=== PATIENT | female | born 1990 | race Caucasian/White ===

== ENCOUNTER → 2017-09-27 | Outpatient (CLI) | payer BC, OTHER ==
--- NOTE | 2017-09-27 09:26 | REP ---
MRI RIGHT HIP: TECHNIQUE: Coronal T1, STIR through the pelvis, T2 fat sat, right hip all three planes, axial oblique proton density fat sat right hip. The visualized osseous structures demonstrate normal marrow signal. There is no bone marrow edema or occult fracture. There is no evidence of avascular necrosis. There does appear to be a tear of the superior labrum of the right hip. Other portions of the labrum appear intact. There is no joint effusion or paralabral cyst. Other surrounding soft tissue structures demonstrate no abnormal signal. The visualized intrapelvic structures appear unremarkable. IMPRESSION: Superior labral tear right hip. No other significant finding. Signed by Freddie Tolliver MD 09/27/2017 11:38 A
== END ==
LOC: M RAD 07:16
PROVIDERS: ATTEND Family Medicine
DX: M25.551 Pain in right hip (principal)

== ENCOUNTER 2017-11-27 07:43 | Outpatient (RCR) | payer OTHER | END 2017-12-13 | LOC: M PT 07:43 | DX: Z51.89 Encounter for other specified aftercare (principal); M75.41 Impingement syndrome of right shoulder ==

== ENCOUNTER 2017-12-20 13:38 | Outpatient (RCR) | payer OTHER | END 2018-01-10 | LOC: M PT 13:38 | DX: Z51.89 Encounter for other specified aftercare (principal); M25.851 Other specified joint disorders, right hip | CPT/HCPCS: 97110 ==

== ENCOUNTER 2017-12-28 19:09 | Emergency (ER) | payer OTHER ==
[2017-12-28] MEDS: IBUPROFEN 600 MG TAB PO (19:45)
[2017-12-28] MEDS: CYCLOBENZAPRINE 10 MG TAB PO (20:01)
[2017-12-28] MEDS: NORCO 5/325MG TABLET (BULK FOR ED) PO (20:45)
[2017-12-28] MEDS: PERCOCET 5MG/325MG TAB PO (21:15)
== END 2017-12-28 21:22 | disposition home or self-care (01) ==
LOC: M ED 19:09
DX: Z04.1 Encounter for examination and observation following transport accident (principal); S13.4XXA Sprain of ligaments of cervical spine, initial encounter; V43.52XA Car driver injured in collision with other type car in traffic accident, initial encounter; Y92.410 Unspecified street and highway as the place of occurrence of the external cause; Z79.3 Long term (current) use of hormonal contraceptives; Z79.899 Other long term (current) drug therapy; Z88.1 Allergy status to other antibiotic agents
CPT/HCPCS: 70450

== ENCOUNTER → 2018-05-23 | Outpatient (CLI) | payer OTHER | LOC: M RAD 07:36 | DX: M54.81 Occipital neuralgia (principal); M47.892 Other spondylosis, cervical region | CPT/HCPCS: 72141 ==

== ENCOUNTER 2019-01-28 18:49 | Emergency (ER) | payer OTHER ==
[~2019-01-28] VITALS: Ht 160 cm; Wt 68.2 kg
[~2019-01-28 18:49] MED LIST: CYCL10TA PO; IBUP-1022 PO; LINZ72CA PO; birth control
[2019-01-28 19:18] LABS: BASO % 0.3 % (0.0-1.0); EOS # 0.1 10^3/uL (0.0-0.50); EOS % 0.8 % (0.0-3.0); HEMATOCRIT 35.9 % (36.0-47.0); HEMOGLOBIN 12.4 g/dl (12.0-15.5); LYMPH # 3.9 10^3/uL (1.5-6.5); LYMPH % 52.1 % (24.0-44.0); MEAN CORPUSCULAR HEMOGLOBIN 31.5 pg (27.0-33.0); MEAN CORPUSCULAR HGB CONC 34.5 g/dl (32.0-36.5); MEAN CORPUSCULAR VOLUME 91.1 fl (80.0-96.0); MONO # 0.5 10^3/uL (0.0-0.8); MONO % 6.7 % (0.0-5.0); PLATELET COUNT, AUTOMATED 362 10^3/uL (150-450); RED BLOOD COUNT 3.94 10^6/uL (4.00-5.40); WHITE BLOOD COUNT 7.5 10^3/uL (4.0-10.0)
[2019-01-28 19:36] LABS: ALBUMIN 3.8 GM/DL (3.2-5.2); ALT/SGPT 26 U/L (12-78); BILIRUBIN,TOTAL 0.2 MG/DL (0.2-1.0); BLOOD UREA NITROGEN 12 MG/DL (7-18); CALCIUM LEVEL 9.2 MG/DL (8.5-10.1); CARBON DIOXIDE LEVEL 24 MEQ/L (21-32); CHLORIDE LEVEL 107 MEQ/L (98-107); CREATININE FOR GFR 0.78 MG/DL (0.55-1.30); GLOMERULAR FILTRATION RATE > 60.0 (>60); GLUCOSE, FASTING 94 MG/DL (70-100); POTASSIUM SERUM 3.8 MEQ/L (3.5-5.1); SODIUM LEVEL 138 MEQ/L (136-145); TOTAL PROTEIN 7.4 GM/DL (6.4-8.2)
[2019-01-28 20:12] LABS: HEPATITIS B SURFACE ANTIGEN NEGATIVE (NEGATIVE)
[2019-01-28 20:18] LABS: HCG, SERUM QUALITATIVE NEGATIVE (NEGATIVE)
[2019-01-28] MEDS ORDERED: ONDANSETRON 4 MG ORAL DISINTEGRATING TAB (Q0162 PER 1MG) PO ONE (20:30)
[2019-01-28] MEDS ORDERED: EXPOSURE KIT-ADULT 7 DAY SUPPLY PO ONE (20:30)
[2019-01-28] MEDS ORDERED: TRUVTAB PO (20:35)
[2019-01-28] MEDS ORDERED: RALT40TA PO (20:35)
[2019-01-28] MEDS ORDERED: ONDA4TAB6 PO (20:36)
[2019-01-28 20:41] VITALS: BP 112/62
[2019-01-30 05:51] LABS: HEPATITIS B SURFACE ANTIBODY POSITIVE (POSITIVE)
== END 2019-01-28 21:02 | disposition home or self-care (01) ==
LOC: M ED 18:49
DX: Z77.21 Contact with and (suspected) exposure to potentially hazardous body fluids (principal); S60.511A Abrasion of right hand, initial encounter; W50.0XXA Accidental hit or strike by another person, initial encounter; Y92.89 Other specified places as the place of occurrence of the external cause; Y93.9 Activity, unspecified; Y99.0 Civilian activity done for income or pay; Z79.3 Long term (current) use of hormonal contraceptives; Z79.899 Other long term (current) drug therapy; Z88.8 Allergy status to other drugs, medicaments and biological substances
CPT/HCPCS: 80053; 84703; 85025; 86706; 86803; 87340; 87389; 99283; Q0162

== ENCOUNTER → 2019-03-19 | Outpatient (CLI) | payer OTHER ==
[~2019-03-19] MED LIST changes: +ONDA4TAB6 PO; +RALT40TA PO; +TRUVTAB PO
[2019-03-19 10:10] LABS: ALBUMIN 3.9 GM/DL (3.2-5.2); ALT/SGPT 21 U/L (12-78); BILIRUBIN,DIRECT < 0.1 MG/DL (0.0-0.2); BILIRUBIN,TOTAL 0.2 MG/DL (0.2-1.0); TOTAL PROTEIN 7.6 GM/DL (6.4-8.2)
[2019-03-20 10:17] LABS: HIV 1&2 SCREEN CENTAUR NEGATIVE (NEGATIVE)
[2019-03-21 14:27] LABS: HEPATITIS C QUANTITATION HCV Not Detected IU/mL (.)
== END ==
LOC: M LAB 09:02
PROVIDERS: ATTEND Internal Medicine Infectious Disease
DX: Z77.21 Contact with and (suspected) exposure to potentially hazardous body fluids (principal)

== ENCOUNTER → 2019-05-06 | Outpatient (CLI) | payer OTHER ==
[2019-05-06 09:44] LABS: BASO % 0.6 % (0.0-1.0); EOS # 0.1 10^3/uL (0.0-0.50); EOS % 2.4 % (0.0-3.0); HEMATOCRIT 37.4 % (36.0-47.0); HEMOGLOBIN 12.3 g/dl (12.0-15.5); LYMPH # 2.7 10^3/uL (1.5-6.5); LYMPH % 50.4 % (24.0-44.0); MEAN CORPUSCULAR HEMOGLOBIN 30.8 pg (27.0-33.0); MEAN CORPUSCULAR HGB CONC 32.9 g/dl (32.0-36.5); MEAN CORPUSCULAR VOLUME 93.5 fl (80.0-96.0); MONO # 0.4 10^3/uL (0.0-0.8); MONO % 8.2 % (0.0-5.0); NEUTROPHILS % 38.2 % (36.0-66.0); PLATELET COUNT, AUTOMATED 340 10^3/uL (150-450); WHITE BLOOD COUNT 5.3 10^3/uL (4.0-10.0)
[2019-05-06 10:24] LABS: ALBUMIN 3.3 GM/DL (3.2-5.2); ALT/SGPT 25 U/L (12-78); BILIRUBIN,TOTAL 0.2 MG/DL (0.2-1.0); BLOOD UREA NITROGEN 14 MG/DL (7-18); CALCIUM LEVEL 8.8 MG/DL (8.5-10.1); CARBON DIOXIDE LEVEL 26 MEQ/L (21-32); CHLORIDE LEVEL 108 MEQ/L (98-107); CHOLESTEROL LEVEL 172 MG/DL (<200); CHOLESTEROL RISK RATIO 2.177 (<5); FERRITIN 49 NG/ML (8-252); FREE T4 0.77 NG/DL (0.76-1.46); GLOMERULAR FILTRATION RATE > 60.0 (>60); GLUCOSE, FASTING 90 MG/DL (70-100); HDL CHOLESTEROL 79 MG/DL (>40); IRON (FE) 129 UG/DL (50-170); LDL CHOLESTEROL 77 MG/DL (<100); NON-HDL-C 93 MG/DL; PERCENT SATURATION 30.6 % (13.2-45.0); POTASSIUM SERUM 3.9 MEQ/L (3.5-5.1); SODIUM LEVEL 140 MEQ/L (136-145); THYROID STIMULATING HORMONE 0.952 uIU/ML (0.358-3.740); TOTAL IRON BINDING CAPACITY 421 UG/DL (250-450); TOTAL PROTEIN 7.3 GM/DL (6.4-8.2); TRIGLYCERIDES LEVEL 80 MG/DL (<150)
[2019-05-06 11:18] LABS: HEMOGLOBIN A1c 5.3 %
== END ==
LOC: M LAB 09:10
PROVIDERS: ATTEND Physician Assistant
DX: D64.9 Anemia, unspecified (principal); Z13.220 Encounter for screening for lipoid disorders; Z13.29 Encounter for screening for other suspected endocrine disorder

== ENCOUNTER 2019-07-24 05:40 | Emergency (ER) | payer OTHER ==
[~2019-07-24] VITALS: Ht 160 cm; Wt 78.2 kg
[2019-07-24] MEDS ORDERED: SAXE1INJ SC (06:11)
[2019-07-24 06:24] LABS: BASO % 0.7 % (0.0-1.0); EOS # 0.1 10^3/uL (0.0-0.5); HEMATOCRIT 37.9 % (36.0-47.0); HEMOGLOBIN 13.1 g/dl (12.0-15.5); LYMPH # 3.3 10^3/uL (1.5-5.0); LYMPH % 55.4 % (24.0-44.0); MEAN CORPUSCULAR HGB CONC 34.6 g/dl (32.0-36.5); MEAN CORPUSCULAR VOLUME 92.4 fl (80.0-96.0); MONO # 0.5 10^3/uL (0.0-0.8); MONO % 8.8 % (0.0-5.0); NEUTROPHILS % 32.9 % (36.0-66.0); PLATELET COUNT, AUTOMATED 335 10^3/uL (150-450)
[2019-07-24 06:52] LABS: BLOOD UREA NITROGEN 16 MG/DL (7-18); CARBON DIOXIDE LEVEL 22 MEQ/L (21-32); CHLORIDE LEVEL 109 MEQ/L (98-107); CK-MB VALUE MASS < 1.0 NG/ML (<3.6); CPK CREATINE PHOSPHOKINASE 109 U/L (26-192); CREATININE FOR GFR 0.76 MG/DL (0.55-1.30); GLOMERULAR FILTRATION RATE > 60.0 (>60); GLUCOSE, FASTING 93 MG/DL (70-100); MB/CK RELATIVE INDEX 0.92 (< OR =4); POTASSIUM SERUM 4.1 MEQ/L (3.5-5.1); SODIUM LEVEL 139 MEQ/L (136-145); TROPONIN I < 0.02 NG/ML (< 0.10)
--- NOTE | 2019-07-24 07:14 | ECGEPIP ---
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
[2019-07-24 07:39] LABS: ALBUMIN 3.8 GM/DL (3.2-5.2); ALT/SGPT 37 U/L (12-78); BILIRUBIN,DIRECT < 0.1 MG/DL (0.0-0.2); BILIRUBIN,TOTAL 0.2 MG/DL (0.2-1.0); LIPASE 193 U/L (73-393); TOTAL PROTEIN 7.7 GM/DL (6.4-8.2)
[2019-07-24] MEDS ORDERED: ONDANSETRON 4MG/2ML VIAL (J2405) IV ONE (07:45)
[2019-07-24 07:55] LABS: HCG, SERUM QUALITATIVE NEGATIVE (NEGATIVE)
[2019-07-24] MEDS ORDERED: KETOROLAC 30 MG/ML VIAL (J1885) IV ONE (08:15)
--- NOTE | 2019-07-24 09:00 | REP ---
RIGHT UPPER QUADRANT ULTRASOUND: Real-time sonographic evaluation of the right upper quadrant performed. Gallbladder demonstrates mild intraluminal sludge with no definite stones. There is no gallbladder wall thickening or pericholecystic fluid. There is no intrahepatic or extrahepatic biliary dilatation, common bile duct measuring 5 mm. Liver is grossly unremarkable with no definite mass. Pancreas could not be visualized. Right kidney demonstrates no hydronephrosis with normal size 11.7 cm in length. IMPRESSION: Mild gallbladder sludge without definite stones, gallbladder wall thickening, pericholecystic fluid or biliary dilatation. Electronically Signed by Freddie Tolliver MD 07/25/2019 08:02 A
[2019-07-24] MEDS ORDERED: ISOVUE-370 76% 100ML VIAL (Q9967) As Ordered ONE (09:06)
--- NOTE | 2019-07-24 09:13 | REP ---
CHEST, SINGLE VIEW: There is no evidence of acute infiltrate. No pleural effusion is seen. The heart is normal in size. The mediastinal silhouette is unremarkable. The visualized osseous structures are intact. IMPRESSION: No acute pulmonary disease. Electronically Signed by Freddie Tolliver MD 07/25/2019 08:04 A
--- NOTE | 2019-07-24 09:58 | REP ---
CT pulmonary angiogram: With IV contrast. History: Rule out pulmonary embolism. Comparison studies: Comparison chest x-ray July 24, 2019. Contrast dose: 100 ML of Isovue [address] technique: Helical scanning is acquired and overlapping 1.5 mm and contiguous 3 mm axial images are reformatted. In addition, maximum intensity projection and multiplanar re-formation images are generated in sagittal and coronal imaging projections. CT pulmonary angiographic findings: There is good opacification of the pulmonary arterial tree. There is no CT evidence of pulmonary embolism. Thoracic aorta shows no evidence of aneurysm or dissection. Maximal intensity projection images show no additional abnormality. There is no evidence of infiltrate, mass, or significant pulmonary nodule in the lung olson. No pleural or pericardial effusion is seen. No hilar or mediastinal mass or adenopathy is observed. Visualized upper abdominal structures are unremarkable. No bony abnormalities appreciated. Impression: Negative CT pulmonary angiogram. No CT evidence of pulmonary embolus. Electronically Signed by Sy Molina MD 07/24/2019 09:49 A
--- NOTE | 2019-07-24 10:11 | REP ---
CT abdomen and pelvis with IV contrast but without oral contrast: History: Right-sided abdomen pain. CT contrast dose: 100 ml of intravenous Isovue 370. CT findings: Digital preliminary front end alignment specialist view of the abdomen demonstrates moderate stool. There are multiple loops of air-filled, but nondilated small bowel throughout the central abdomen. There is no evidence of free intraperitoneal air or fluid. The liver and the spleen are normal in size homogeneous in texture. No adrenal lesion is seen. No abnormalities noted in the gallbladder or in the pancreas. Kidneys enhance symmetrically and are morphologically intact. No hydronephrosis or calculus is seen. A normal appendix is noted right lower quadrant medial to the cecum. There is moderate stool in the colon on CT images with formed stool throughout the nondilated colon. No uterine abnormality is observed. The uterus is tipped somewhat to the left. No ovarian mass or significant cyst is seen. No pelvic mass or adenopathy is observed. No abdominal wall defect is seen. Bone window settings show no bony destructive lesion. Impression: No acute abnormality. Air-filled loops of small bowel throughout the central abdomen without obstructive lesion. Moderate colonic stool. Normal appendix. Otherwise negative CT study abdomen and pelvis. Electronically Signed by Sy Molina MD 07/24/2019 10:55 A
[2019-07-24] MEDS ORDERED: DICYCLOMINE INJ 20MG/2ML (J0500) IM ONE (10:30)
[2019-07-24 11:30] VITALS: BP 146/85
[2019-07-24] MEDS ORDERED: DICY10CA13 PO (11:32)
[2019-07-24] MEDS ORDERED: TRAM50TA2 PO (11:32)
== END 2019-07-24 11:47 | disposition home or self-care (01) ==
LOC: M ED 05:40
DX: K58.9 Irritable bowel syndrome, unspecified (principal); K83.9 Disease of biliary tract, unspecified; Z79.899 Other long term (current) drug therapy
CPT/HCPCS: 71045; 71275; 74177; 76705; 80048; 80076; 82550; 82553; 83690; 84484; 84703; 85025; 93005; 93041; 94760; 96372; 96374; 96375; 99285; J0500; J1885; J2405; Q9967

== ENCOUNTER → 2019-09-23 | Outpatient (CLI) | payer OTHER ==
[~2019-09-23] MED LIST changes: +DICY10CA13 PO; +SAXE1INJ SC; +TRAM50TA2 PO
[2019-09-23 08:16] LABS: ALBUMIN 3.6 GM/DL (3.2-5.2); ALT/SGPT 27 U/L (12-78); BILIRUBIN,TOTAL 0.2 MG/DL (0.2-1.0); BLOOD UREA NITROGEN 10 MG/DL (7-18); CALCIUM LEVEL 8.9 MG/DL (8.5-10.1); CARBON DIOXIDE LEVEL 27 MEQ/L (21-32); CHLORIDE LEVEL 110 MEQ/L (98-107); FREE T4 0.81 NG/DL (0.76-1.46); GLOMERULAR FILTRATION RATE > 60.0 (>60); GLUCOSE, FASTING 97 MG/DL (70-100); SODIUM LEVEL 141 MEQ/L (136-145); THYROID STIMULATING HORMONE 0.647 uIU/ML (0.358-3.740); TOTAL PROTEIN 7.6 GM/DL (6.4-8.2)
== END ==
LOC: M LAB 07:15
PROVIDERS: ATTEND Physician Assistant
DX: E66.9 Obesity, unspecified (principal)

== ENCOUNTER → 2019-11-27 | Outpatient (REF) | payer OTHER ==
[2019-11-27 12:07] LABS: ALBUMIN 4.6 GM/DL (3.2-5.2); BILIRUBIN,DIRECT 0.2 MG/DL (0.0-0.2); BILIRUBIN,TOTAL 0.4 MG/DL (0.2-1.0); CHOLESTEROL RISK RATIO 2.141 (<5); FOLLICLE STIMULATING HORMONE 3.2 mIU/mL; PROLACTIN 8.2 NG/ML; THYROID STIMULATING HORMONE 1.15 uIU/ML (0.358-3.740); TOTAL PROTEIN 7.8 GM/DL (6.4-8.2)
[2019-11-30 14:31] LABS: ANTI MULLERIAN HORMONE 2.06 ng/mL (.); FREE ANDROGEN INDEX 1.9 (0.4-8.4); SOMATOMEDIN-C INSULIN GROWTH 206 ng/mL (78-270); TESTOSTERONE 41 ng/dL (8-48); TESTOSTERONE FREE (DIRECT) 1.3 pg/mL (0.0-4.2)
== END ==
LOC: M LAB 09:56
DX: E28.2 Polycystic ovarian syndrome (principal)

== ENCOUNTER → 2022-06-14 | Outpatient (CLI) | payer OTHER ==
[~2022-06-14] MED LIST changes: +CYCL-707 PO; -CYCL10TA PO; +EMTR1TAB16 PO; -TRUVTAB PO
[2022-06-14 13:26] LABS: BASO % 0.5 % (0.0-1.0); EOS % 0.4 % (0.0-3.0); HEMATOCRIT 39.7 % (36.0-47.0); HEMOGLOBIN 13.4 g/dl (12.0-15.5); LYMPH # 4.5 10^3/uL (1.5-5.0); LYMPH % 54.9 % (24.0-44.0); MEAN CORPUSCULAR HEMOGLOBIN 31.5 pg (27.0-33.0); MEAN CORPUSCULAR HGB CONC 33.8 g/dl (32.0-36.5); MEAN CORPUSCULAR VOLUME 93.4 fl (80.0-96.0); MONO # 0.4 10^3/uL (0.0-0.8); NEUTROPHILS # 3.2 10^3/uL (1.5-8.5); NEUTROPHILS % 39.1 % (36.0-66.0); PLATELET COUNT, AUTOMATED 377 10^3/uL (150-450); RED BLOOD COUNT 4.25 10^6/uL (4.00-5.40); WHITE BLOOD COUNT 8.2 10^3/uL (4.0-10.0)
[2022-06-14 14:26] LABS: ALBUMIN 4.3 GM/DL (3.2-5.2); ALT/SGPT 30 U/L (12-78); BILIRUBIN,TOTAL 0.4 MG/DL (0.2-1.0); BLOOD UREA NITROGEN 8 MG/DL (7-18); CALCIUM LEVEL 10.1 MG/DL (8.5-10.1); CARBON DIOXIDE LEVEL 22 MEQ/L (21-32); CHLORIDE LEVEL 106 MEQ/L (98-107); CHOLESTEROL LEVEL 212 MG/DL (<200); CHOLESTEROL RISK RATIO 2.465 (<5); CREATININE FOR GFR 0.91 MG/DL (0.55-1.30); GLOMERULAR FILTRATION RATE > 60.0 (>60); GLUCOSE, FASTING 93 MG/DL (70-100); HDL CHOLESTEROL 86 MG/DL (>40); LDL CHOLESTEROL 108 MG/DL (<100); NON-HDL-C 126 MG/DL; POTASSIUM SERUM 3.8 MEQ/L (3.5-5.1); SODIUM LEVEL 136 MEQ/L (136-145); TOTAL PROTEIN 7.9 GM/DL (6.4-8.2); TRIGLYCERIDES LEVEL 91 MG/DL (<150)
[2022-06-14 14:50] LABS: TOTAL 25(OH) VITAMIN D 31.4 NG/ML (30.0-100.0)
[2022-06-14 16:18] LABS: HEMOGLOBIN A1c 5.2 %
== END ==
LOC: M LAB 12:29
PROVIDERS: ATTEND Physician Assistant
DX: Z13.29 Encounter for screening for other suspected endocrine disorder (principal); Z13.220 Encounter for screening for lipoid disorders

== ENCOUNTER → 2023-06-22 | Outpatient (REF) | payer OTHER ==
[~2023-06-22] MED LIST changes: +DICY-61 PO; -DICY10CA13 PO
== END ==
LOC: M SFHCWAGY 17:43
PROVIDERS: ATTEND Nurse Practitioner Family
DX: Z12.4 Encounter for screening for malignant neoplasm of cervix (principal)

== ENCOUNTER → 2023-06-22 | Outpatient (CLI) | payer OTHER ==
[2023-06-22 15:44] LABS: BASO % 0.5 % (0.0-1.0); EOS # 0.1 10^3/uL (0.0-0.5); EOS % 0.7 % (0.0-3.0); HEMATOCRIT 37.4 % (36.0-47.0); HEMOGLOBIN 12.6 g/dl (12.0-15.5); LYMPH # 4.1 10^3/uL (1.5-5.0); LYMPH % 49.7 % (24.0-44.0); MEAN CORPUSCULAR HEMOGLOBIN 31.1 pg (27.0-33.0); MEAN CORPUSCULAR HGB CONC 33.7 g/dl (32.0-36.5); MEAN CORPUSCULAR VOLUME 92.3 fl (80.0-96.0); MONO # 0.6 10^3/uL (0.0-0.8); MONO % 7.6 % (2.0-8.0); NEUTROPHILS # 3.4 10^3/uL (1.5-8.5); NEUTROPHILS % 41.1 % (36.0-66.0); PLATELET COUNT, AUTOMATED 354 10^3/uL (150-450); RED BLOOD COUNT 4.05 10^6/uL (4.00-5.40); WHITE BLOOD COUNT 8.3 10^3/uL (4.0-10.0)
[2023-06-22 16:02] LABS: TOTAL IRON BINDING CAPACITY 340 UG/DL (250-425)
[2023-06-22 16:03] LABS: ALBUMIN 4.3 G/DL (3.2-5.2); ALKALINE PHOSPHATASE 49 U/L (46-116); ALT/SGPT 14 U/L (7.0-40); AST/SGOT 11 U/L (<34); BILIRUBIN,TOTAL 0.5 MG/DL (0.3-1.2); BLOOD UREA NITROGEN 8 MG/DL (9-23); CALCIUM LEVEL 9.3 MG/DL (8.5-10.1); CARBON DIOXIDE LEVEL 26 MMOL/L (20-31); CHLORIDE LEVEL 107 MMOL/L (98-107); CREATININE FOR GFR 0.66 MG/DL (0.55-1.30); GLOMERULAR FILTRATION RATE > 60.0 (>60); GLUCOSE, FASTING 78 MG/DL (60-100); IRON (FE) 136 UG/DL (50-170); POTASSIUM SERUM 3.7 MMOL/L (3.5-5.1); SODIUM LEVEL 138 MMOL/L (136-145); TOTAL PROTEIN 7.3 G/DL (5.7-8.2)
[2023-06-22 16:04] LABS: FREE T4 1.19 NG/DL (0.89-1.76); THYROID STIMULATING HORMONE 1.898 uIU/ML (0.55-4.78)
[2023-06-22 16:05] LABS: FERRITIN 71.9 NG/ML (7.3-270.7); FOLLICLE STIMULATING HORMONE < 0.3 mIU/ML; LUTEINIZING HORMONE 0.4 mIU/ML
== END ==
LOC: M LAB 15:14
PROVIDERS: ATTEND Physician Assistant
DX: N80.00 Endometriosis of the uterus, unspecified (principal)

== ENCOUNTER → 2023-09-14 | Outpatient (CLI) | payer OTHER | LOC: M RADPRO 11:49 | PROVIDERS: ATTEND Obstetrics & Gynecology | DX: N97.9 Female infertility, unspecified (principal) ==

== ENCOUNTER → 2023-09-14 | Outpatient (CLI) | payer OTHER ==
[~2023-09-14] MED LIST changes: +ISOVUE-370 76% 100ML VIAL As Ordered ONE
== END ==
LOC: M RAD 11:41
PROVIDERS: ATTEND Obstetrics & Gynecology
DX: N80.9 Endometriosis, unspecified (principal)
CPT/HCPCS: 76830; 76856; 93976; Q9967

== ENCOUNTER → 2023-12-19 | Outpatient (REF) | payer BC ==
[~2023-12-19] MED LIST changes: -ISOVUE-370 76% 100ML VIAL As Ordered ONE
[2023-12-19 21:21] LABS: CHLAMYDIA DNA AMPLIFICATION NEGATIVE (NEGATIVE); GC DNA AMPLIFICATION NEGATIVE (NEGATIVE)
== END ==
LOC: M PLALAB 15:50
PROVIDERS: ATTEND Advanced Practice Midwife
DX: Z34.01 Encounter for supervision of normal first pregnancy, first trimester (principal)

== ENCOUNTER → 2023-12-21 | Outpatient (REF) | LOC: M EMP 10:29 | PROVIDERS: ATTEND Family Medicine | DX: Z11.52 Encounter for screening for COVID-19 (principal) ==

== ENCOUNTER → 2024-01-02 | Outpatient (CLI) | payer BC ==
[2024-01-02 15:46] LABS: HEMATOCRIT 36.5 % (36.0-47.0); HEMOGLOBIN 12.4 g/dl (12.0-15.5); MEAN CORPUSCULAR HEMOGLOBIN 30.9 pg (27.0-33.0); PLATELET COUNT, AUTOMATED 356 10^3/uL (150-450); RED BLOOD COUNT 4.01 10^6/uL (4.00-5.40); WHITE BLOOD COUNT 9.8 10^3/uL (4.0-10.0)
[2024-01-02 16:26] LABS: HIV 1&2 SCREEN NEGATIVE (NEGATIVE)
[2024-01-02 16:34] LABS: HEPATITIS C VIRUS ABY INDEX < 0.02 INDEX (<0.8)
[2024-01-02 17:10] LABS: GC DNA AMPLIFICATION NEGATIVE (NEGATIVE)
== END ==
LOC: M PLALAB 11:59
PROVIDERS: ATTEND Advanced Practice Midwife
DX: Z34.01 Encounter for supervision of normal first pregnancy, first trimester (principal); Z3A.00 Weeks of gestation of pregnancy not specified

== ENCOUNTER 2024-01-16 11:47 | Outpatient (CLI) | payer BC ==
[~2024-01-16] VITALS: Ht 160 cm; Wt 87.3 kg
[2024-01-16 12:02] VITALS: BP 125/84
[2024-01-16] MEDS ORDERED: PRENTAB9 PO (12:10)
== END 2024-01-16 12:15 | disposition home or self-care (01) ==
LOC: M LDO 11:47
PROVIDERS: ATTEND Obstetrics & Gynecology
DX: O26.892 Other specified pregnancy related conditions, second trimester (principal); N89.8 Other specified noninflammatory disorders of vagina; Z3A.14 14 weeks gestation of pregnancy
CPT/HCPCS: 76815; G0463

== ENCOUNTER → 2024-02-05 | Outpatient (REF) ==
[~2024-02-05] MED LIST changes: +PRENTAB9 PO
[2024-02-05 11:56] LABS: RSV AMPLIFICATION NEGATIVE (NEGATIVE)
== END ==
LOC: M EMP 10:32
PROVIDERS: ATTEND Family Medicine
DX: Z01.89 Encounter for other specified special examinations (principal)

== ENCOUNTER → 2024-02-21 | Outpatient (CLI) | payer BC | LOC: M WHC 14:46 | PROVIDERS: ATTEND Obstetrics & Gynecology | DX: O32.1XX0 Maternal care for breech presentation, not applicable or unspecified (principal); Z3A.19 19 weeks gestation of pregnancy ==

== ENCOUNTER 2024-03-04 10:39 | Outpatient (RCR) | payer BC | END 2024-03-12 | LOC: M PT 10:39 | PROVIDERS: ATTEND Physician Assistant | DX: M25.551 Pain in right hip (principal) ==

== ENCOUNTER 2024-03-25 10:40 | Outpatient (RCR) | payer BC | END 2024-04-12 | LOC: M PT 10:40 | PROVIDERS: ATTEND Physician Assistant | DX: M25.551 Pain in right hip (principal) ==

== ENCOUNTER → 2024-04-01 | Outpatient (CLI) | payer BC | LOC: M RAD 14:20 | PROVIDERS: ATTEND Obstetrics & Gynecology | DX: Z36.2 Encounter for other antenatal screening follow-up (principal); Z3A.25 25 weeks gestation of pregnancy ==

== ENCOUNTER → 2024-04-03 | Outpatient (REF) | payer BC | LOC: M LAB REF 17:15 | PROVIDERS: ATTEND Physician Assistant | DX: J20.9 Acute bronchitis, unspecified (principal) ==

== ENCOUNTER → 2024-04-16 | Outpatient (CLI) | payer BC ==
[~2024-04-16] MED LIST changes: +ONDA-282 PO; -ONDA4TAB6 PO
[2024-04-16 11:15] LABS: HEMATOCRIT 30.8 % (36.0-47.0); HEMOGLOBIN 10.5 g/dl (12.0-15.5); MEAN CORPUSCULAR HEMOGLOBIN 31.6 pg (27.0-33.0); MEAN CORPUSCULAR HGB CONC 34.1 g/dl (32.0-36.5); MEAN CORPUSCULAR VOLUME 92.8 fl (80.0-96.0); PLATELET COUNT, AUTOMATED 392 10^3/uL (150-450); RED BLOOD COUNT 3.32 10^6/uL (4.00-5.40); WHITE BLOOD COUNT 8.7 10^3/uL (4.0-10.0)
[2024-04-16 12:36] LABS: GC DNA AMPLIFICATION NEGATIVE (NEGATIVE)
== END ==
LOC: M LAB 09:20
PROVIDERS: ATTEND Obstetrics & Gynecology
DX: Z34.92 Encounter for supervision of normal pregnancy, unspecified, second trimester (principal); Z3A.00 Weeks of gestation of pregnancy not specified
CPT/HCPCS: 36415; 82950; 85027; 86850; 86900; 86901; 87810; 87850; J2790

== ENCOUNTER 2024-05-07 10:15 | Outpatient (RCR) | payer BC | END 2024-05-12 | LOC: M PT 10:15 | PROVIDERS: ATTEND Physician Assistant | DX: M25.551 Pain in right hip (principal) ==

== ENCOUNTER → 2024-06-12 | Outpatient (CLI) | payer BC | LOC: M RAD 13:48 | PROVIDERS: ATTEND Obstetrics & Gynecology | DX: O24.415 Gestational diabetes mellitus in pregnancy, controlled by oral hypoglycemic drugs (principal); Z3A.35 35 weeks gestation of pregnancy ==

== ENCOUNTER → 2024-09-24 | Outpatient (CLI) | payer BC ==
[~2024-09-24] MED LIST changes: +ALKATAB12 PO; +COLA100C5 PO; +ERGO500029 PO; +IBUP80TA PO; +LARI1TAB PO; +LETR2.5T2 PO; +LEVOTAB10 PO; +METF10004 PO; +MONT10TA97 PO; +PERCOCET PO; +PHEN37.58 PO
[2024-09-24 14:01] LABS: HEMOGLOBIN A1c 5.3 % (4.0-6.0)
[2024-09-24 14:05] LABS: ALBUMIN 4.4 G/DL (3.2-5.2); ALKALINE PHOSPHATASE 79 U/L (35-104); ALT/SGPT 30 U/L (7.0-40); AST/SGOT 20 U/L (<34); BILIRUBIN,TOTAL 0.5 MG/DL (0.3-1.2); BLOOD UREA NITROGEN 15 MG/DL (9-23); CALCIUM LEVEL 10.3 MG/DL (8.5-10.1); CARBON DIOXIDE LEVEL 23 MMOL/L (20-31); CHLORIDE LEVEL 105 MMOL/L (98-107); CREATININE FOR GFR 0.87 MG/DL (0.55-1.30); GLOMERULAR FILTRATION RATE > 60.0 (>60); GLUCOSE, FASTING 85 MG/DL (60-100); POTASSIUM SERUM 4.3 MMOL/L (3.5-5.1); SODIUM LEVEL 137 MMOL/L (136-145); TOTAL PROTEIN 7.9 G/DL (5.7-8.2)
== END ==
LOC: M LAB 12:47
PROVIDERS: ATTEND Physician Assistant
DX: R73.01 Impaired fasting glucose (principal)